=== PATIENT | female | born 1985 | race Caucasian/White ===

== ENCOUNTER 2019-01-17 09:13 | Inpatient (IN) | payer OTHER ==
--- NOTE | 2019-01-17 09:20 | PDOC.LDHP ---
Labor and Delivery H&P HPI: 33 y/o at 39 and 0/7 weeks for Repeat . Current gestational age (weeks): 39 Due date: 01/24/19 Grav: 5 Para: 1 Current complications: none Abnormal US findings: No Current medications: pre-selene vitamins Previous surgical history: low tranverse CS Social history: none - Physical Exam Vital signs reviewed and normal: yes General: NAD Heart: RRR Abdomen: gravid Extremeties: no edema FHT: category 1 - Assessment L&D Assessment: scheduled repeat section - Plan Plan: admit to L&D, to OR for section
[2019-01-17] MEDS ORDERED: Ondansetron PF 4 MG/2 ML Vial IVP PRN ×2 (09:22→12:40)
[2019-01-17] MEDS ORDERED: Bicitra 30 ML UDCUP PO SCH (09:22)
[2019-01-17] MEDS ORDERED: Promethazine HCl 25 MG/ML VIAL IM PRN ×2 (09:22→12:40)
[2019-01-17] MEDS ORDERED: CEFAZOLIN 2 GM, IV Admixture Fee-Chemo 1 UNITS in Sodium Chloride 0.9% 100 ML IVPB SCH (09:22)
[2019-01-17] MEDS ORDERED: hydrALAZINE 20 MG/ML VIAL SLOW IVP PRN ×2 (09:22→15:43)
[2019-01-17] MEDS: Lactated Ringer's 1,000 ML IV SCH ×2 (09:46→21:53)
[2019-01-17 09:51] VITALS: BMI 26.1
[2019-01-17 09:59] LABS: Hemoglobin 11.9 g/dL (12.0-16.0); Mean Corpuscular HGB CONC 33.6 g/dL (32.0-36.0); Mean Corpuscular Hemoglobin 30.7 pg (27.0-31.0); Mean Corpuscular Volume 91.2 fL (78.0-98.0); Mean Platelet Volume 7.8 fL (7.4-10.4); Platelet Count 205 thou/uL (130-400); RBC Distribution Width 13.5 % (11.5-14.5); Red Blood Cell (RBC) Count 3.87 mill/uL (4.20-5.40)
[2019-01-17 10:43] LABS: HBSAg Index 0.31 S/CO (0-0.99); Hep B Surf Ag Non-Reactive S/CO (NonReactive); Syphilis Antibody Nonreactive (Nonreactive); Syphilis Antibody Index 0.06 S/CO (<1.00 Non-Reactive)
[2019-01-17] MEDS ORDERED: Clindamycin/D5W 900 MG in Premix Bag 1 BAG IVPB SCH (11:00)
[2019-01-17] MEDS ORDERED: Vancomycin HCl 1 GM in Premix Bag 1 BAG IVPB SCH (11:00)
[2019-01-17] MEDS ORDERED: Oxytocin 10 UNITS/ML VIAL ONE ×2 (11:30→13:24)
[2019-01-17] MEDS ORDERED: MORPHINE 5 MG/10 ML PF VIAL ONE (11:30)
[2019-01-17] MEDS ORDERED: Fentanyl 100 MCG/2 ML VIAL ONE (11:30)
[2019-01-17] MEDS ORDERED: PHENYLEPHRINE-NS 100 MCG/ML 10 ML SYRINGE ONE ×2 (11:31→11:47)
[2019-01-17] MEDS ORDERED: Ketorolac Tromethamine 30 MG/ML VIAL ONE ×2 (11:31→11:47)
[2019-01-17] MEDS ORDERED: ePHEDrine/0.9% NaCl/PF SYRINGE 50 mg/10 ml ONE (11:31)
[2019-01-17] MEDS ORDERED: Ondansetron PF 4 MG/2 ML Vial ONE ×2 (11:31→11:47)
[2019-01-17] MEDS ORDERED: ePHEDrine 50 MG/ML VIAL ONE (11:47)
[2019-01-17] MEDS ORDERED: Promethazine HCl 25 MG SUPP PR PRN (12:40)
[2019-01-17] MEDS ORDERED: Naloxone HCl 0.4 mg/ml Vial IVP PRN ×2 (12:40)
[2019-01-17] MEDS ORDERED: Naloxone HCl 0.4 mg/ml Vial IV PRN (12:40)
[2019-01-17] MEDS ORDERED: diphenhydrAMINE 50 MG/ML VIAL IVP PRN (12:40)
[2019-01-17] MEDS ORDERED: Communication Order-Pharmacy FS SCH (12:45)
[2019-01-17] MEDS ORDERED: Lanolin Ointment 7 GM TUBE TOP PRN (15:43)
[2019-01-17] MEDS ORDERED: Adacel (T-DAP) 0.5 ML SYRINGE IM ONE (19:00)
[2019-01-17] MEDS: Ketorolac Tromethamine 30 MG/ML VIAL IVP PRN (20:45)
[2019-01-17] MEDS: Docusate Calcium (SURFAK) 240 MG CAP PO SCH (22:17)
[2019-01-17] MEDS: Ferrous Sulfate 325 MG TAB PO SCH (22:18)
[2019-01-18] MEDS: Ibuprofen 800 MG TAB PO SCH ×4 (02:19→17:27)
[2019-01-18] MEDS ORDERED: Sodium Chloride 0.9% 10 ML ONE (04:09)
[2019-01-18] MEDS: Ketorolac Tromethamine 30 MG/ML VIAL IVP PRN (04:15)
[2019-01-18 05:46] LABS: Hemoglobin 10.8 g/dL (12.0-16.0); Mean Corpuscular HGB CONC 33.4 g/dL (32.0-36.0); Mean Corpuscular Hemoglobin 30.8 pg (27.0-31.0); Mean Corpuscular Volume 92.3 fL (78.0-98.0); Mean Platelet Volume 7.9 fL (7.4-10.4); Platelet Count 168 thou/uL (130-400); RBC Distribution Width 13.5 % (11.5-14.5); White Blood Cell (WBC) Count 9.5 thou/uL (4.8-10.8)
[2019-01-18] MEDS: Ferrous Sulfate 325 MG TAB PO SCH (07:33)
[2019-01-18] MEDS: Acetaminophen/Codeine 30-300mg Tablet PO PRN ×4 (09:00→22:56)
[2019-01-18] MEDS: Docusate Calcium (SURFAK) 240 MG CAP PO SCH ×2 (09:01→20:42)
--- NOTE | 2019-01-18 13:31 | PDOC.PP ---
Post Progress Note Post Day #: 1 PO intake tolerated: yes Flatus: yes Ambulation: yes Vital Signs (12 hours) Temp Pulse Resp BP Pulse Ox 01/18/19 11:51 98.0 F 68 20 107/58 L 01/18/19 08:24 97.6 F 70 20 102/55 L 95 01/18/19 04:00 97.7 F 67 18 106/55 L Weight Weight 172 lb - Physical Examination Cardiovascular: no m/r/g, RRR Respiratory: clear to auscultation bilaterally, non-labored breathing Abdominal: + bowel sounds, lochia, no distention Extremities: negative homans (B) Skin: CS incision dry & intact, no rash Neurological: no gross focal deficits Psychiatric: A&Ox3, normal affect Result Diagrams: 01/18/19 05:30 Additional Labs: Post Labs Blood Type A POSITIVE 01/17/19 10:16 Hep Bs Antigen Non-Reactive S/CO (NonReactive) 01/17/19 09:40
[2019-01-19] MEDS: Ibuprofen 800 MG TAB PO SCH ×3 (00:02→17:12)
[2019-01-19] MEDS: Ferrous Sulfate 325 MG TAB PO SCH ×3 (00:25→21:13)
[2019-01-19] MEDS: Acetaminophen/Codeine 30-300mg Tablet PO PRN ×3 (09:11→21:33)
[2019-01-19] MEDS: Docusate Calcium (SURFAK) 240 MG CAP PO SCH ×2 (09:11→21:12)
--- NOTE | 2019-01-19 14:00 | PDOC.PP ---
Post Progress Note Post Day #: 2 PO intake tolerated: yes Flatus: yes Ambulation: yes Vital Signs (12 hours) Temp Pulse Resp BP Pulse Ox 01/19/19 12:04 98.4 F 75 20 108/51 L 01/19/19 08:26 97.9 F 82 20 109/56 L 96 01/19/19 03:35 98.2 F 72 18 122/58 L Weight Weight 172 lb - Physical Examination General: NAD Cardiovascular: no m/r/g, RRR Respiratory: clear to auscultation bilaterally, non-labored breathing Abdominal: + bowel sounds, lochia, no distention, appropriately TTP Extremities: negative homans (B) Skin: CS incision dry & intact, no rash Neurological: no gross focal deficits Result Diagrams: 01/18/19 05:30 Additional Labs: Post Labs Blood Type A POSITIVE 01/17/19 10:16 Hep Bs Antigen Non-Reactive S/CO (NonReactive) 01/17/19 09:40
[2019-01-20] MEDS: Ibuprofen 800 MG TAB PO SCH ×3 (00:13→16:11)
[2019-01-20 08:11] VITALS: BP 138/80; TEMP 98.2
[2019-01-20] MEDS: Ferrous Sulfate 325 MG TAB PO SCH (08:38)
[2019-01-20] MEDS: Docusate Calcium (SURFAK) 240 MG CAP PO SCH (08:39)
[2019-01-20] MEDS: Acetaminophen/Codeine 30-300mg Tablet PO PRN (13:52)
== END 2019-01-20 16:25 | disposition home or self-care (01) | DRG 788 ==
LOC: L&D 09:13 → 3SW 15:45
PROVIDERS: ADMIT Obstetrics & Gynecology; ATTEND Obstetrics & Gynecology
PROC: 10D00Z1 Extraction of Products of Conception, Low, Open Approach (ICD-10-PCS; principal; 2019-01-17)
DX: O34.211 Maternal care for low transverse scar from previous cesarean delivery (principal); Z3A.39 39 weeks gestation of pregnancy; Z37.0 Single live birth; Z88.0 Allergy status to penicillin
CPT/HCPCS: 36415; 51702; 85027; 86780; 86850; 86900; 86901; 87340; 90715; J0690; J1885; J2274; J2405; J2590; J3010; J3370; J3490